=== PATIENT | male | born 1955 | race Caucasian/White ===

== ENCOUNTER 2023-05-03 06:58 | Outpatient (CLI) | payer MEDICARE, SELFPAY ==
--- NOTE | ~2023-05-03 | MR_ITS ---
MRI of the cervical spine Clinical History: Spondylosis Technique: Axial T2-weighted and gradient images, and sagittal T1-weighted, T2-weighted, and [facility] were acquired. Findings: No fracture or subluxation. There is fusion across the C6-C7 disc space. No suspicious bone marrow signal abnormality seen. At C2-C3, there is no significant disc bulge or herniation. No spinal canal stenosis, cord compressio n, or neural foraminal narrowing. At C3-C4, there is mild disc osteophyte complex. No canal stenosis or cord compression. There is bila teral facet arthropathy with right neural foraminal narrowing. At C4-C5, there is disc osteophyte complex, without izabel canal stenosis or cord compression. There i s mild bilateral facet arthropathy with probable preserved bilateral neural foramina. At C5-C6, there is disc osteophyte complex without izabel canal stenosis or cord compression. Neural f oramina are probably preserved despite bilateral facet arthropathy. At C6-C7, there is no disc bulge or herniation. No spinal canal stenosis or cord compression. Bilater al neural foramina are preserved. No abnormal signal seen in the spinal cord. Paravertebral soft tissues are unremarkable. Impression: Mild degenerative spondylosis overall, as above. Fusion across the C6-C7 disc space. Reviewed, dictated and finalized at location . STAFF Impression: Mild degenerative spondylosis overall, as above. Fusion across the C6-C7 disc space.
== END 2023-05-03 06:59 ==
LOC: MICIMG 06:58
PROVIDERS: PCP Anesthesiology Pain Medicine; Visit Provider Anesthesiology Pain Medicine
DX: M47.812 Spondylosis without myelopathy or radiculopathy, cervical region (principal); M43.22 Fusion of spine, cervical region
CPT/HCPCS: 72141